=== PATIENT | male | born 1995 | race Caucasian/White ===

== ENCOUNTER 2017-09-19 12:16 | Emergency (ER) | payer MEDICAID ==
[~2017-09-19] VITALS: Ht 190.5 cm; Wt 136.1 kg
[2017-09-19 12:25] VITALS: BP 117/74
--- NOTE | 2017-09-19 12:33 | NUR ---
PATIENT PRESENTS TO ED WITH C/O LT GREAT TOE PAIN W/ NUMBNESS FOR COUPLE OF DAYS.NO SWELLING NOTED;DENIES TRAUMA;SKIN IS PINK/WARM/DRY; AAOX4 WITH EVEN AND STEADY GAIT; LUNGS CLEAR BL; HR EVEN AND REGULAR; PT DENIES ANY FEVER, CP, SOB, OR COUGH AT THIS TIME; PATIENT STATES PAIN OF 8/10 AT THIS TIME;PATIENT POSITIONED FOR COMFORT; HOB ELEVATED; BEDRAILS UP X2; BED DOWN. ER MD MADE AWARE OF PT STATUS.
--- NOTE | 2017-09-19 12:47 | NUR ---
DR VALENZUELA EVALUATING AT BEDSIDE
[2017-09-19] MEDS ORDERED: LIDOCAINE 2% 1000 MG/50 ML VIAL INJ ONE (13:05)
[2017-09-19] MEDS ORDERED: NEOMYCIN/POLYMYXIN/BACITRACIN 0.9 GM/1 PKT TP ONE (13:28)
[2017-09-19 13:50] VITALS: BP 123/71
--- NOTE | 2017-09-19 13:50 | NUR ---
Patient discharged with v/s stable. Written and verbal after care instructions given and explained. Patient alert, oriented and verbalized understanding of instructions. Ambulatory with steady gait. All questions addressed prior to discharge. ID band removed. Patient advised to follow up with PMD. Rx of MOTRIN given. Patient educated on indication of medication including possible reaction and side effects. Opportunity to ask questions provided and answered.Advised pt to keep wound clean and monitor it for any discahrges and increasing pain;
== END 2017-09-19 13:50 | disposition home or self-care (01) ==
LOC: MED 12:16
DX: L60.0 Ingrowing nail (principal)
CPT/HCPCS: 11730; 99283; J2001